=== PATIENT | female | born 1955 | race Caucasian/White ===

== ENCOUNTER 2018-05-08 08:02 | Day surgery (SDC) | payer OTHER ==
[2018-05-08] MEDS ORDERED: SCOPOLAMINE 1MG TRANSDERMAL PATCH As Ordered (08:51)
[2018-05-08] MEDS: SCOPOLAMINE 1MG TRANSDERMAL PATCH TOP (08:55)
[2018-05-08] MEDS ORDERED: LIDOCAINE 2% INJ 100 MG/5 ML SDV (FOR ANES.) As Ordered (08:57)
[2018-05-08] MEDS: LR 1,000 ML IV (08:57)
[2018-05-08] MEDS ORDERED: dexameTHASONE 4 MG/ML 1ML VIAL (J1100) As Ordered (08:57)
[2018-05-08] MEDS ORDERED: ONDANSETRON 4MG/2ML VIAL (J2405) As Ordered (08:57)
[2018-05-08] MEDS ORDERED: PROPOFOL 200 MG/20 ML VIAL As Ordered (08:57)
[2018-05-08] MEDS ORDERED: ROCURONIUM BROMIDE 50 MG/5 ML VIAL As Ordered ×2 (08:57→11:17)
[2018-05-08] MEDS ORDERED: fentaNYL 250 MCG/5 ML INJECTION (J3010) As Ordered (08:58)
[2018-05-08] MEDS ORDERED: MIDAZOLAM INJ 2 MG/2 ML VIAL (J2250) As Ordered (08:58)
[2018-05-08] MEDS: ceFAZolin SOD 1 GM in D5W MINI-BAG PLUS 50 ML IV (10:14)
[2018-05-08] MEDS ORDERED: ePHEDrine SULFATE 25 MG/5 ML(5MG/ML) SYRINGE As Ordered (10:20)
[2018-05-08] MEDS ORDERED: DESFLURANE 240 ML INHALANT As Ordered (10:50)
[2018-05-08] MEDS ORDERED: KETOROLAC 60 MG/2 ML VIAL (J1885) As Ordered (11:17)
[2018-05-08] MEDS ORDERED: SUGAMMADEX SODIUM 500 MG/5 ML VIAL (BRIDION) As Ordered (11:28)
[2018-05-08] MEDS: BUPIVACAINE/EPIN 0.25% 30 ML VIAL As Ordered (11:30)
[2018-05-08] MEDS ORDERED: NORCO, ANEXSIA 5/325MG TABLET (HYDROcodone/ACETAMINOPHEN) PO (12:00)
[2018-05-08] MEDS ORDERED: LR 1,000 ML IV ×2 (12:00)
[2018-05-08] MEDS ORDERED: PERCOCET 5MG/325MG TAB PO (12:00)
[2018-05-08] MEDS ORDERED: fentaNYL 100 MCG/2 ML INJECTION (J3010) IV (12:00)
[2018-05-08] MEDS ORDERED: ONDANSETRON 4MG/2ML VIAL (J2405) IV ×2 (12:00)
[2018-05-08] MEDS ORDERED: KETOROLAC 30 MG/ML VIAL (J1885) IV (17:00)
== END 2018-05-08 14:35 | disposition home or self-care (01) ==
LOC: M SDC 08:02
DX: K40.90 Unilateral inguinal hernia, without obstruction or gangrene, not specified as recurrent (principal); D17.79 Benign lipomatous neoplasm of other sites; F41.0 Panic disorder [episodic paroxysmal anxiety]; M12.9 Arthropathy, unspecified; M54.9 Dorsalgia, unspecified; Z79.899 Other long term (current) drug therapy; Z78.0 Asymptomatic menopausal state; Z87.81 Personal history of (healed) traumatic fracture
CPT/HCPCS: 49650

== ENCOUNTER → 2018-08-06 | Outpatient (CLI) | payer OTHER ==
[~2018-08-06] MED LIST: LEXA1TAB PO
--- NOTE | 2018-08-06 17:29 | REPMRS ---
Patient History The patient states she had a clinical breast exam in 05/2018. Patient is postmenopausal. Family history of prostate cancer at age 50 or over in father, breast cancer at age 50 or over in maternal aunt, breast cancer at age 50 or over in paternal grandmother. 3 benign cyst aspirations of both breasts. No Hormone Replacement Therapy Digital Woman Screen Mammo: August 06, 2018 - Exam #: [id number] Bilateral CC and MLO view(s) were taken. Technologist: Britney Manuel, Technologist Prior study comparison: November 03, 2015, digital woman screen mammo performed at [facility]. August 11, 2014, digital woman screen mammo performed at [facility]. September 30, 2011, bilateral bilat screen digital mammo performed at [facility]. FINDINGS: There are scattered fibroglandular densities. There is a moderate amount of residual fibroglandular tissue which is fairly symmetric. There is no interval development of dominant mass, architectural distortion, or clustered microcalcification typical of malignancy. There has been no change in the appearance of the mammogram from the prior studies. 3-D tomosynthesis shows no additional findings. Assessment: BI-RADS/ACR category 1 mammogram. Negative. Recommendation Routine screening mammogram of both breasts in 1 year (for women over age 40). This patient's Lifetime Breast Cancer RIsk is estimated at 13.3 %. This mammogram was interpreted with the aid of an FDA-approved computer-aided dectection system. Electronically Signed By: Clint Maddox MD 08/06/18 [id number]
--- NOTE | 2018-08-09 09:41 | DEXA ---
AP SPINE L1 - L4 0.885 -2.5 -1.1 LT FEMUR TOTAL 0.790 -1.7 -0.6 LT NECK 0.719 -2.3 -0.9 RT FEMUR TOTAL 0.757 -2.0 -0.9 RT NECK 0.699 -2.4 -0.9 TOTAL BODY TOTAL OTHER COMMENTS: There is low bone density of the spine and hips. The density of the spine has increased 3.3% since the initial exam on 09/30/2011. The spine density has increased 0.2% since the most recent exam on 08/11/2014. The density of the left hip has decreased 3.1% since the initial exam on 09/30/2011. The density of the left hip has decreased 5.3% since the most recent exam on 08/11/2014. The density of the right hip has decreased 4.4% since the most recent exam on 09/30/2011. The density of the right hip has decreased 7.9% since the most recent exam on 08/11/2014. FOLLOW-UP: Recommendation for the next bone density exam: 2 years. TIFFANY
== END ==
LOC: M WHC 13:06
PROVIDERS: ATTEND Nurse Practitioner Family
DX: Z12.31 Encounter for screening mammogram for malignant neoplasm of breast (principal); M85.80 Other specified disorders of bone density and structure, unspecified site; Z78.0 Asymptomatic menopausal state; Z80.42 Family history of malignant neoplasm of prostate; Z80.3 Family history of malignant neoplasm of breast; Z92.89 Personal history of other medical treatment

== ENCOUNTER 2019-01-16 08:58 | Day surgery (SDC) | payer OTHER ==
[~2019-01-16] VITALS: Ht 162.6 cm; Wt 57.5 kg
[~2019-01-16 08:58] MED LIST changes: +ALEV220T22 PO; +CALC500C16 PO; +MULTTAB12 PO; +NS 1,000 ML IV ONE
[2019-01-16] MEDS ORDERED: FOSA70TA PO (09:32)
[2019-01-16] MEDS ORDERED: PROPOFOL 200 MG/20 ML VIAL As Ordered ONE (10:07)
[2019-01-16] MEDS ORDERED: LIDOCAINE 2% INJ 100 MG/5 ML SDV (FOR ANES.) As Ordered ONE (10:20)
--- NOTE | 2019-01-16 10:59 | ROOR ---
Patient Name: Grace Carrillo Procedure Date: 01/16/2019 10:21 AM Date of : 1955 Age: 63 Room: [facility] Gender: Female Note Status: Finalized Procedure: Total Colonoscopy to cecum + Bx. Indications: Positive Cologuard test Providers: Aron Rodrigez MD Referring MD: Yoana LANCE MD Requesting Provider: Medicines: Monitored Anesthesia Care Complications: No immediate complications. Procedure: Pre-Anesthesia Assessment: - The heart rate, respiratory rate, oxygen saturations, blood pressure, adequacy of pulmonary ventilation, and response to care were monitored throughout the procedure. The Colonoscope was introduced through the anus and advanced to the cecum, identified by appendiceal orifice and ileocecal valve. The colonoscopy was performed without difficulty. The patient tolerated the procedure well. The quality of the bowel preparation was excellent. Findings: The perianal and digital rectal examinations were normal. One non-bleeding erosion was found in the transverse colon. Biopsies were taken with a cold forceps for histology. The exam was otherwise without abnormality on direct and retroflexion views. Impression: - One erosion in the transverse colon. Biopsied. - The examination was otherwise normal on direct and retroflexion views. - The exam was otherwise normal to the cecum. Recommendation: - Patient has a contact number available for emergencies. The signs and symptoms of potential delayed complications were discussed with the patient. Return to normal activities tomorrow. Written discharge instructions were provided to the patient. - High fiber diet. - Discharge patient to home. - Continue present medications. - Await pathology results. - Telephone GI clinic for pathology results in 1 week. - Return to referring physician. - Return to referring physician. - The findings and recommendations were discussed with the patient's family. Aron Rodrigez MD Aron Rodrigez MD 01/16/2019 10:53:25 AM Electronically signed by Aron Rodrigez MD Number of Addenda: 0 Note Initiated On: 01/16/2019 10:21 AM Estimated Blood Loss: Estimated blood loss: none.
[2019-01-16 11:12] VITALS: BP 143/93
== END 2019-01-16 11:21 | disposition home or self-care (01) ==
LOC: M OPP 08:58
PROVIDERS: ATTEND Internal Medicine Gastroenterology
DX: K63.3 Ulcer of intestine (principal); R19.5 Other fecal abnormalities

== ENCOUNTER → 2019-10-14 | Outpatient (CLI) | payer BC ==
[~2019-10-14] MED LIST changes: +FOSA70TA PO; -NS 1,000 ML IV ONE
--- NOTE | 2019-10-14 15:22 | REPMRS ---
Patient History The patient states she had a clinical breast exam in 2018. Family history of prostate cancer at age 50 or over in father, breast cancer at age 50 or over in maternal aunt, breast cancer at age 50 or over in paternal grandmother. 3 benign cyst aspirations of both breasts. No Hormone Replacement Therapy Digital Woman Screen Mammo: October 14, 2019 - Exam #: [id number] Bilateral CC and MLO view(s) were taken. Technologist: Elizabeth Grier, Technologist Prior study comparison: August 06, 2018, bilateral digital woman screen mammo performed at [facility]. November 03, 2015, digital woman screen mammo performed at [facility]. August 11, 2014, digital woman screen mammo performed at [facility]. FINDINGS: There are scattered fibroglandular densities. There has been no change in the appearance of the mammogram from the prior studies. There is a mild amount of scattered fibroglandular density which is fairly symmetric. There is no interval development of dominant mass, architectural distortion, or grouped microcalcification suggestive of malignancy. 3-D tomosynthesis shows no additional findings. Assessment: BI-RADS/ACR category 1 mammogram. Negative Mammogram. Recommendation Routine screening mammogram of both breasts in 1 year (for women over age 40). This patient's Lifetime Breast Cancer Risk is estimated at 12.8 %. This mammogram was interpreted with the aid of an FDA-approved computer-aided dectection system. Electronically Signed By: Clint Maddox MD 10/14/19 [id number]
== END ==
LOC: M WHC 13:55
PROVIDERS: ATTEND Nurse Practitioner Family
DX: Z12.31 Encounter for screening mammogram for malignant neoplasm of breast (principal); Z80.42 Family history of malignant neoplasm of prostate; Z80.3 Family history of malignant neoplasm of breast

== ENCOUNTER → 2020-09-22 | Outpatient (REF) | payer MEDICARE ==
[2020-09-23 13:04] LABS: PERCENT SATURATION 7.7 % (13.2-45.0)
== END ==
LOC: M LAB REF 12:12
PROVIDERS: ATTEND Internal Medicine
DX: D64.9 Anemia, unspecified (principal)

== ENCOUNTER → 2020-12-01 | Outpatient (CLI) | payer MEDICARE ==
--- NOTE | 2020-12-01 16:27 | DEXAMM ---
INDICATION: M85.80 DISORDER OF BONE. COMPARISON: 08/06/2018 as well as other prior exams. TECHNIQUE: Bone density was measured using dual-energy x-ray absorptiometry (DEXA). FINDINGS: AP SPINE L1-L4 BMD 0.900 g/cm2 Young Adult T-Score -2.4 Age Matched Z-Score -0.8. LT FEMUR, TOTAL BMD 0.777 g/cm2 Young Adult T-Score -1.8 Age Matched Z-Score -0.6. LT NECK BMD 0.709 g/cm2 Young Adult T-Score -2.4 Age Matched Z-Score -0.9. RT FEMUR, TOTAL BMD 0.766 g/cm2 Young Adult T-Score -1.9 Age Matched Z-Score -0.7. RT NECK BMD 0.705 g/cm2 Young Adult T-Score -2.4 Age Matched Z-Score -0.9. IMPRESSION: There is low bone density of the spine. There is low bone density of the left hip. There is low bone density of the right hip. The density of the spine has increased 5.0% since the initial exam on 09/30/2011. The density of the spine increased 1.7% since most recent exam on 08/06/2018. The density of the left hip has decreased 6.8% since initial exam on 09/30/2011. The density of the left hip has decreased 1.4% since most recent exam on 08/06/2018. The density of the right hip has decreased 5.0% since the initial exam on 09/30/2011. The density of the right hip has increased 0.9% since the most recent exam on 08/06/2018. FOLLOW-UP: Recommendation for the next bone density exam: 2 years. <Electronically signed by Matthew Pereyra > 12/01/20 [id number]
--- NOTE | 2020-12-01 16:42 | REPMRS ---
Patient History The patient states she has not had a clinical breast exam in over a year. Family history of prostate cancer at age 50 or over in father, breast cancer at age 50 or over in maternal aunt, breast cancer at age 50 or over in paternal grandmother. 3 benign cyst aspirations of both breasts. No Hormone Replacement Therapy 3D TOMOSYNTHESIS WAS PERFORMED. [facility] lifetime risk for breast cancer is 12.2%. Volpara breast density b. Digital Woman Screen Mammo: December 01, 2020 - Exam #: [id number] Bilateral CC and MLO view(s) were taken. Technologist: Larissa Christopher, Technologist Prior study comparison: October 14, 2019, bilateral digital woman screen mammo performed at [facility]. August 06, 2018, bilateral digital woman screen mammo performed at [facility]. FINDINGS: There are scattered fibroglandular densities. There has been no change in the appearance of the mammogram from the prior studies. There is a mild amount of residual fibroglandular tissue which is fairly symmetric. There is no interval development of dominant mass, architectural distortion, or clustered microcalcification suggestive of malignancy. Assessment: BI-RADS/ACR category 1 mammogram. Negative Mammogram. Recommendation Routine screening mammogram in 1 year (for women over age 40). This mammogram was interpreted with the aid of an FDA-approved computer-aided dectection system. Electronically Signed By: Matthew Pereyra MD 12/01/20 [id number]
== END ==
LOC: M WHC 14:56
PROVIDERS: ATTEND Internal Medicine
DX: Z12.31 Encounter for screening mammogram for malignant neoplasm of breast (principal); Z80.3 Family history of malignant neoplasm of breast; Z80.42 Family history of malignant neoplasm of prostate; M85.88 Other specified disorders of bone density and structure, other site; M85.851 Other specified disorders of bone density and structure, right thigh; M85.852 Other specified disorders of bone density and structure, left thigh

== ENCOUNTER → 2021-08-30 | Outpatient (REF) | payer MEDICARE | LOC: M LAB REF 16:12 | PROVIDERS: ATTEND Internal Medicine | DX: Z01.84 Encounter for antibody response examination (principal) ==

== ENCOUNTER → 2021-12-21 | Outpatient (CLI) | payer MEDICARE | LOC: M WHC 15:58 | PROVIDERS: ATTEND Internal Medicine | DX: Z12.31 Encounter for screening mammogram for malignant neoplasm of breast (principal); Z80.42 Family history of malignant neoplasm of prostate; Z80.3 Family history of malignant neoplasm of breast ==

== ENCOUNTER → 2022-08-06 | Outpatient (REF) | payer MEDICARE ==
[~2022-08-06] MED LIST changes: +ALEN70TA87 PO; -FOSA70TA PO
== END ==
LOC: M LAB REF 18:20
PROVIDERS: ATTEND Physician Assistant
DX: R30.0 Dysuria (principal)

== ENCOUNTER → 2023-05-01 | Outpatient (CLI) | payer MEDICARE | LOC: M WHC 14:16 | PROVIDERS: ATTEND Internal Medicine | DX: M85.80 Other specified disorders of bone density and structure, unspecified site (principal); Z12.31 Encounter for screening mammogram for malignant neoplasm of breast ==

== ENCOUNTER → 2023-07-19 | Outpatient (REF) | payer MEDICARE | LOC: M LAB REF 16:38 | PROVIDERS: ATTEND Nurse Practitioner Family | DX: N39.0 Urinary tract infection, site not specified (principal) ==

== ENCOUNTER → 2024-09-30 | Outpatient (REF) | payer MEDICARE | LOC: M LAB REF 17:17 | PROVIDERS: ATTEND Internal Medicine | DX: N39.0 Urinary tract infection, site not specified (principal) ==

== ENCOUNTER → 2024-12-26 | Outpatient (CLI) | payer MEDICARE | LOC: M WHC 11:04 | PROVIDERS: ATTEND Internal Medicine | DX: Z12.31 Encounter for screening mammogram for malignant neoplasm of breast (principal); R92.323 Mammographic fibroglandular density, bilateral breasts ==

== ENCOUNTER → 2025-06-04 | Outpatient (CLI) | payer MEDICARE | LOC: M WHC 10:41 | PROVIDERS: ATTEND Internal Medicine | DX: D64.9 Anemia, unspecified (principal); M85.88 Other specified disorders of bone density and structure, other site; M85.851 Other specified disorders of bone density and structure, right thigh; M85.852 Other specified disorders of bone density and structure, left thigh ==

== ENCOUNTER → 2025-06-04 | Outpatient (REF) | payer MEDICARE ==
[2025-06-04 15:36] LABS: IRON (FE) 110.0 UG/DL (50-170); PERCENT SATURATION 27.3 % (13.2-45.0)
[2025-06-04 15:39] LABS: VITAMIN B12 LEVEL 518.0 PG/ML (211-911)
== END ==
LOC: M LAB REF 14:26
PROVIDERS: ATTEND Internal Medicine
DX: D64.9 Anemia, unspecified (principal)